=== PATIENT | male | born 1970 | race Caucasian/White ===

== ENCOUNTER 2016-09-09 10:53 | Inpatient (IN) | payer OTHER ==
[2016-09-09] MEDS ORDERED: CLINDAMYCIN 600MG PREMIX IVPB 50 ML IVPB ONE ×2 (14:05→14:56)
[2016-09-09] MEDS ORDERED: morphine CARPU-JECT 4 MG/1 ML DISP.SYRIN IVPUSH ONE (14:05)
--- NOTE | 2016-09-09 14:12 | PDOC ---
History of Present Illness - General Chief Complaint: Pain, Acute Stated Complaint: RT KNEE PAIN Time Seen by Provider: 09/09/16 12:11 History Source: Patient - History of Present Illness Occurred: reports: other Lower Extremity Pain Location: right: knee Method of Injury: Yes: fell Past History - Past Medical History Allergies/Adverse Reactions: Allergies Allergy/AdvReac Type Severity Reaction Status Date / Time No Known Allergies Allergy Verified 09/09/16 10:59 Home Medications: Ambulatory Orders NK [No Known Home Medication] 09/09/16 Other medical history: OBESITY - Immunization History Immunization Up to Date: Yes - Psycho/Social/Smoking Cessation Hx Anxiety: No Suicidal Ideation: No Smoking History: Never smoked Have you smoked in the past 12 months: No Hx Alcohol Use: No Drug/Substance Use Hx: No Substance Use Type: None Review of Systems - Review of Systems Constitutional: No: Chills, Fever, Malaise Musculoskeletal: Yes: Joint Pain, Joint Swelling Integumentary: Yes: Erythema *Physical Exam - Vital Signs Last Vital Signs Temp Pulse Resp BP Pulse Ox 99.0 F 97 H 20 151/97 95 09/09/16 10:57 09/09/16 10:57 09/09/16 10:57 09/09/16 10:57 09/09/16 10:57 - Physical Exam General Appearance: Yes: Appropriately Dressed, Mild Distress HEENT: positive: Normal Voice Neck: positive: Supple Respiratory/Chest: negative: Respiratory Distress Extremity: positive: Other (significant erythema to anterior R knee extending into gaines, w/ sig ttp, FROMI ) ED Treatment Course - LABORATORY CBC & Chemistry Diagram: 09/09/16 15:20 09/09/16 15:20 - RADIOLOGY Radiology Studies Ordered: Category Date Time Status CHEST X-RAY PORTABLE* [RAD] Stat Radiology 09/09/16 14:04 Ordered KNEE 2 POS-RIGHT [RAD] Stat Radiology 09/09/16 14:05 Ordered Medical Decision Making - Medical Decision Making 09/09/16 14:08 46 yo M, morbidly obesed, p/w R knee pain and swelling after fall. Pt reports falling out of bed twice ~10 days ago and since then has noticed progressive pain/swelling and erythema to anterior aspect of R knee and states he has not been able to bear weight in 2 days. Denies h/o similar episodes and no f/c. See exam R knee cellulitis Pt has extensive cellulitis of R knee, no e/o deeper infxn, i.e septic joint at this time -pain control -IV abx -XR -labs -admit 09/09/16 16:13 09/09/16 16:19XR and labs unremarkable. case d/w Dr Reyna and pt admitted *DC/Admit/Observation/Transfer Diagnosis at time of Disposition: Cellulitis of knee, right - Discharge Dispostion Condition at time of disposition: Fair Admit: Yes - Referrals Referrals: STAFF,NOT ON [Primary Care Provider] -
[2016-09-09] MEDS ORDERED: morphine CARPU-JECT 4 MG/1 ML DISP.SYRIN ONE (14:56)
[2016-09-09 15:39] LABS: BASOPHIL 1.5 % (0-2.0); EOSINOPHIL 1.1 % (0-4.5); MCH 28.5 pg (25.7-33.7); MCHC 32.7 g/dl (32.0-35.9); MEAN CELL VOLUME 87.1 fl (80-96); MEAN PLT VOLUME 9.4 fl (7.5-11.1); NEUTROPHILS 75.8 % (42.8-82.8); PLATELET COUNT 357 K/MM3 (134-434); RDW 13.7 % (11.9-15.9); WHITE BLOOD COUNT 11.9 K/mm3 (4.0-10.0)
[2016-09-09 15:54] LABS: ALBUMIN 3.2 g/dl (3.4-5.0); ANION GAP 9 (8-16); BILIRUBIN,TOTAL 0.7 mg/dL (0.2-1.0); CALCIUM 9.1 mg/dL (8.5-10.1); CO2 27 mmol/L (21-32); CREATININE 0.8 mg/dL (0.7-1.3); GLUCOSE,RANDOM 220 mg/dL (74-106); SGPT/ALT 34 U/L (12-78); TOT PROT 8.2 g/dl (6.4-8.2)
[2016-09-09 15:56] LABS: ALK PHOS 85 U/L (45-117); SGOT/AST 37 U/L (15-37)
[2016-09-09 19:07] VITALS: BMI 74.4
--- NOTE | 2016-09-09 20:33 | HP ---
Admitting History and Physical - Primary Care Physician PCP: Candace Reyna - Admission History of Present Illness: 46 yo M, morbidly obesed, p/w R knee pain and swelling after fall. Pt reports falling out of bed twice ~10 days ago and since then has noticed progressive pain/swelling and erythema to anterior aspect of R knee and states he has not been able to bear weight in 2 days. - Smoking History Smoking history: Never smoked Have you smoked in the past 12 months: No - Alcohol/Substance Use Hx Alcohol Use: No Home Medications - Allergies Allergies/Adverse Reactions: Allergies Allergy/AdvReac Type Severity Reaction Status Date / Time No Known Allergies Allergy Verified 09/09/16 10:59 - Home Medications Home Medications: Ambulatory Orders NK [No Known Home Medication] 09/09/16 Review of Systems - Review of Systems Musculoskeletal: reports: Other (knee pain) Physical Examination Vital Signs: Vital Signs Temperature 99.0 F 09/09/16 10:57 Pulse Rate 98 H 09/09/16 19:02 Respiratory Rate 18 09/09/16 19:02 Blood Pressure 151/97 09/09/16 10:57 O2 Sat by Pulse Oximetry (%) 97 09/09/16 19:02 Constitutional: Yes: No Distress HENT: Yes: Atraumatic Neck: Yes: Supple Cardiovascular: Yes: Regular Rate and Rhythm Respiratory: Yes: CTA Bilaterally Gastrointestinal: Yes: Normal Bowel Sounds Extremities: Yes: Other (r knee swollen, red and inflammed) Neurological: Yes: Alert, Oriented Problem List - Problems (1) Cellulitis of knee, right Code(s): L03.115 - CELLULITIS OF RIGHT LOWER LIMB (2) Morbid obesity Code(s): E66.01 - MORBID (SEVERE) OBESITY DUE TO EXCESS CALORIES Assessment/Plan Laboratory Tests 09/09/16 09/09/16 15:20 15:20 WBC 11.9 H RBC 4.89 Hgb 13.9 Hct 42.6 MCV 87.1 MCHC 32.7 RDW 13.7 Plt Count 357 MPV 9.4 Neutrophils % 75.8 Lymphocytes % 16.1 Monocytes % 5.5 Eosinophils % 1.1 Basophils % 1.5 Sodium 136 Potassium 5.3 H Chloride 100 Carbon Dioxide 27 Anion Gap 9 BUN 11 Creatinine 0.8 Creat Clearance w eGFR > 60 Random Glucose 220 H Calcium 9.1 Total Bilirubin 0.7 AST 37 ALT 34 Alkaline Phosphatase 85 Total Protein 8.2 Albumin 3.2 L Active Medications Generic Name Dose Route Start Last Admin Trade Name Freq PRN Reason Stop Dose Admin Influenza Virus Vaccine 45 mcg 09/09/16 19:07 Fluvirin IM 09/09/16 19:08 .ONCE ONE Pneumococcal 13-Valent Conj Vacc 0.5 ml 09/09/16 19:07 Prevnar 13 Syringe - IM 09/09/16 19:08 .ONCE ONE 1.R KNEE CELLULITIS/BURSITIS IV ABX ID AND ORTHO CONSULT PRN PAIN MEDS
[2016-09-09] MEDS ORDERED: morphine CARPU-JECT 2 MG/1 ML DISP.SYRIN ONE (21:00)
[2016-09-09] MEDS ORDERED: morphine CARPU-JECT 2 MG/1 ML DISP.SYRIN IVPUSH ONE (21:38)
[2016-09-09] MEDS ORDERED: PNEUMOC 13-VAL CONJ-DIP CRM/PF 0.5 ML DISP.SYRIN IM ONE (21:45)
[2016-09-09] MEDS ORDERED: INFLUENZA VACCINE 45 MCG/0.5 ML (MDV 16-17) IM ONE (21:45)
[2016-09-09] MEDS ORDERED: PT OWN MED DRAWER 7, Y5N ONE (23:08)
[2016-09-09] MEDS: HEPARIN NA (PORCINE) 5,000 UNITS/ML 1ML VIAL SQ SCH (23:31)
[2016-09-09] MEDS: CLINDAMYCIN 300 MG PREMIX IVPB 50 ML IVPB SCH (23:53)
[2016-09-10] MEDS: morphine CARPU-JECT 2 MG/1 ML DISP.SYRIN IVPUSH PRN ×4 (01:32→20:13)
[2016-09-10 02:20] LABS: URINE APPEARANCE CLEAR; URINE BILIRUBIN NEGATIVE (NEGATIVE); URINE BLOOD NEGATIVE (NEGATIVE); URINE COLOR YELLOW; URINE GLUCOSE (UA) 3+ (NEGATIVE); URINE KETONE NEGATIVE (NEGATIVE); URINE LEUK ESTERASE NEGATIVE (NEGATIVE); URINE NITRITE NEGATIVE (NEGATIVE); URINE PROTEIN NEGATIVE (NEGATIVE); URINE UROBILINOGEN NEGATIVE E.U./dl (0.2-1.0)
[2016-09-10] MEDS: ACETAMINOPHEN 325 MG TABLET (FP) PO PRN ×3 (02:49→22:54)
[2016-09-10] MEDS: CLINDAMYCIN 300 MG PREMIX IVPB 50 ML IVPB SCH ×4 (03:54→20:13)
[2016-09-10 07:57] LABS: BASOPHIL 0.5 % (0-2.0); EOSINOPHIL 0.8 % (0-4.5); MCH 28.9 pg (25.7-33.7); MCHC 32.5 g/dl (32.0-35.9); MEAN CELL VOLUME 88.9 fl (80-96); MEAN PLT VOLUME 8.8 fl (7.5-11.1); NEUTROPHILS 72.6 % (42.8-82.8); PLATELET COUNT 314 K/MM3 (134-434); RDW 13.5 % (11.9-15.9); WHITE BLOOD COUNT 11.4 K/mm3 (4.0-10.0)
[2016-09-10 08:45] LABS: ALBUMIN 3.1 g/dl (3.4-5.0); ALK PHOS 77 U/L (45-117); ANION GAP 10 (8-16); BILIRUBIN,TOTAL 0.6 mg/dL (0.2-1.0); CALCIUM 9.1 mg/dL (8.5-10.1); CO2 27 mmol/L (21-32); CREATININE 0.8 mg/dL (0.7-1.3); GLUCOSE,RANDOM 233 mg/dL (74-106); SGOT/AST 13 U/L (15-37); SGPT/ALT 31 U/L (12-78); TOT PROT 7.5 g/dl (6.4-8.2)
[2016-09-10] MEDS ORDERED: PT OWN MED DRAWER 7, Y5N ONE ×2 (09:07→14:10)
[2016-09-10] MEDS: HEPARIN NA (PORCINE) 5,000 UNITS/ML 1ML VIAL SQ SCH ×2 (09:11→22:54)
[2016-09-10] MEDS ORDERED: PNEUMOC 13-VAL CONJ-DIP CRM/PF 0.5 ML DISP.SYRIN IM ONE (11:00)
--- NOTE | 2016-09-10 13:51 | CONSULT ---
Consult Consult Specialty:: infectious diseases Referred by:: Reason for Consultation:: cellulitis of the knee joint rt - History of Present Illness Chief Complaint: pain swelling and unable to bear weight on the knee right History of Present Illness: 46 yo M, morbidly obesed, p/w R knee pain and swelling after fall. Pt reports falling out of bed twice ~10 days ago and since then has noticed progressive pain/swelling and erythema to anterior aspect of R knee and states he has not been able to bear weight in 2 days. according to the patient post fall he was fine for few days and since friday the pain and swelling started increasing and the patient could not walk at all nor put pressure on the joint denies any other issues Recently diagnosed with dm - History Source History Provided By: Patient Limitations to Obtaining History: No Limitations - Alcohol/Substance Use Hx Alcohol Use: No - Smoking History Smoking history: Never smoked Have you smoked in the past 12 months: No Home Medications - Allergies Allergies/Adverse Reactions: Allergies Allergy/AdvReac Type Severity Reaction Status Date / Time No Known Allergies Allergy Verified 09/09/16 10:59 - Home Medications Home Medications: Ambulatory Orders NK [No Known Home Medication] 09/09/16 Review of Systems - Review of Systems Constitutional: reports: No Symptoms Eyes: reports: No Symptoms HENT: reports: No Symptoms Neck: reports: No Symptoms Cardiovascular: reports: No Symptoms Respiratory: reports: No Symptoms Gastrointestinal: reports: No Symptoms Genitourinary: reports: No Symptoms Musculoskeletal: reports: Joint Pain, Joint Swelling Integumentary: reports: Erythema, Other Neurological: reports: No Symptoms Endocrine: reports: No Symptoms Hematology/Lymphatic: reports: No Symptoms Psychiatric: reports: No Symptoms Physical Exam Vital Signs: Vital Signs Temperature 98.3 F 09/10/16 09:18 Pulse Rate 96 H 09/10/16 09:18 Respiratory Rate 20 09/10/16 09:18 Blood Pressure 141/74 09/10/16 09:18 O2 Sat by Pulse Oximetry (%) 100 09/10/16 04:57 Constitutional: Yes: Obese (morbidly) Eyes: Yes: Conjunctiva Clear HENT: Yes: Atraumatic, Normocephalic Neck: Yes: Supple, Trachea Midline Cardiovascular: Yes: Regular Rate and Rhythm Respiratory: Yes: Regular, Poor Air Entry (bases) Gastrointestinal: Yes: Normal Bowel Sounds, Soft Musculoskeletal: Yes: Joint Swelling, Other (joint pain,erythema,fluctuation present,inability to move the joint) Extremities: Yes: Erythema, Other Neurological: Yes: Alert, Oriented Psychiatric: Yes: Alert, Oriented Labs: CBC, BMP 09/10/16 06:00 09/10/16 06:00 Imaging - Results Chest X-ray: Report Reviewed, Image Reviewed X-ray: Report Reviewed, Image Reviewed Assessment/Plan patient evaluated after looking at the history patient is now not able to bear any weight on the joint and patient is morbidly obese on palpation the knee is fluctuant sever pain on palpation of the joint inability to move the joint - Problems (1) Cellulitis of knee, right Code(s): L03.115 - CELLULITIS OF RIGHT LOWER LIMB DM r/o septic joint r/o heamarthrosis e/o collection in the joint plan will order a stat ct scan as patient is too big for mri also will need ortho to look at the joint abx combination once we know what ct scan shows can plan further
[2016-09-10] MEDS: PIPERACILLIN/TAZOB 3.375 GM 50 ML IVPB SCH ×2 (14:58→18:09)
--- NOTE | 2016-09-10 16:38 | PN ---
Progress Note (short form) - Note Progress Note: Pt seen and examined. Full consult to follow. Dx=Right knee infected prepatellar bursa. No surgery needed. Con't antibiotics Warm soaks
--- NOTE | 2016-09-10 17:48 | EKG ---
Test Reason : Blood Pressure : / mmHG Vent. Rate : 091 BPM Atrial Rate : 091 BPM P-R Int : 168 ms QRS Dur : 096 ms QT Int : 374 ms P-R-T Axes : 038 017 035 degrees QTc Int : 460 ms NORMAL SINUS RHYTHM NORMAL ECG NO PREVIOUS ECGS AVAILABLE Confirmed by YULISSA TURCIOS MD ([id number]) on 09/10/2016 5:48:20 PM Referred By: Confirmed By:YULISSA TURCIOS MD
--- NOTE | 2016-09-10 20:41 | PN ---
Progress Note, Physician - Current Medication List Current Medications: Active Medications Acetaminophen (Tylenol -) 650 mg PO Q6H PRN PRN Reason: FEVER OR PAIN Last Admin: 09/10/16 12:31 Dose: 650 mg Heparin Sodium (Porcine) (Heparin -) 5,000 unit SQ BID NANCY Last Admin: 09/10/16 09:11 Dose: 5,000 unit Clindamycin Phosphate (Cleocin 300 Mg Premix Ivpb) 50 mls @ 100 mls/hr IVPB Q6H -IV NANCY Last Admin: 09/10/16 20:13 Dose: 100 mls/hr Piperacillin Sod/Tazobactam Sod (Zosyn 3.375gm Ivpb (Pre-Docked)) 50 mls @ 100 mls/hr IVPB Q8H-IV NANCY Last Admin: 09/10/16 18:09 Dose: Not Given Morphine Sulfate (Morphine Injection -) 2 mg IVPUSH Q4H PRN PRN Reason: PAIN Last Admin: 09/10/16 20:13 Dose: 2 mg - Objective Vital Signs: Vital Signs Temperature 98.4 F 09/10/16 18:15 Pulse Rate 88 09/10/16 18:15 Respiratory Rate 20 09/10/16 18:15 Blood Pressure 135/89 09/10/16 18:15 O2 Sat by Pulse Oximetry (%) 100 09/10/16 10:00 Constitutional: Yes: No Distress HENT: Yes: Atraumatic Neck: Yes: Supple Cardiovascular: Yes: Regular Rate and Rhythm Respiratory: Yes: CTA Bilaterally Gastrointestinal: Yes: Normal Bowel Sounds Extremities: Yes: Other (R KNEE RED AND WARM) Neurological: Yes: Alert, Oriented Labs: CBC, BMP 09/10/16 06:00 09/10/16 06:00 Problem List - Problems (1) Cellulitis of knee, right Code(s): L03.115 - CELLULITIS OF RIGHT LOWER LIMB Assessment/Plan 1.R KNEE CELLULITIS/BURSITIS IV ABX ID AND ORTHO CONSULT...NOTED PRN PAIN MEDS
[2016-09-11] MEDS: morphine CARPU-JECT 2 MG/1 ML DISP.SYRIN IVPUSH PRN ×2 (00:05→06:05)
[2016-09-11] MEDS: CLINDAMYCIN 300 MG PREMIX IVPB 50 ML IVPB SCH ×4 (02:30→20:42)
[2016-09-11] MEDS: PIPERACILLIN/TAZOB 3.375 GM 50 ML IVPB SCH ×3 (02:30→17:13)
--- NOTE | 2016-09-11 09:31 | PN ---
Progress Note (short form) - Note Progress Note: Pt seen, s/p fall directly onto right knee. Right knee infected prepatellar bursa unchanged, on IV antibiotics, we should see a more dramatic improvement tonight or tomorrow morning. PE Right knee no change: red, warm, very tender, swollen over the prepatellar bursa. No pain at all with full right knee ROM. (and therefore unlikely to be intra articular) Overall unchanged from last night. Imp No change Rec Con't IV antibiotics Warm soaks to right knee. Ambulation and WBAT Will follow
[2016-09-11] MEDS ORDERED: PT OWN MED DRAWER 7, Y5N ONE ×5 (09:43→20:35)
[2016-09-11] MEDS: HEPARIN NA (PORCINE) 5,000 UNITS/ML 1ML VIAL SQ SCH ×2 (09:45→23:39)
--- NOTE | 2016-09-11 15:54 | CONSULT ---
Consult Consult Specialty:: Endocrinology Referred by:: Dr Reyna Reason for Consultation:: New Onset DM - History of Present Illness Chief Complaint: Rt Knee pain History of Present Illness: this is a 46 y/o M, morbidly obese who presented to ED with C/O R knee pain and swelling after fall about 12 days ago which worsened for the last 4 days. Pt reports falling out of bed ~12 days ago and since then has noticed progressive pain/swelling and erythema to anterior aspect of R knee and states he has not been able to bear weight in 2 days. Pt denies any personal or family h/o DM. Denies any polyuria, polydipsia. Nocturia twice daily. No visual symptoms. No paresthesia. - History Source History Provided By: Patient, Medical Record - Past Medical History Endocrine: Yes: Other (Morbid Obesity) - Alcohol/Substance Use Hx Alcohol Use: No - Smoking History Smoking history: Never smoked Have you smoked in the past 12 months: No Home Medications - Allergies Allergies/Adverse Reactions: Allergies Allergy/AdvReac Type Severity Reaction Status Date / Time No Known Allergies Allergy Verified 09/09/16 10:59 - Home Medications Home Medications: Ambulatory Orders NK [No Known Home Medication] 09/09/16 Family Disease History - Family Disease History Other Family History: No family h/o DM Review of Systems - Review of Systems Constitutional: reports: No Symptoms Eyes: reports: No Symptoms HENT: reports: No Symptoms Neck: reports: No Symptoms Cardiovascular: reports: No Symptoms Respiratory: reports: No Symptoms Gastrointestinal: reports: No Symptoms Genitourinary: reports: Testicular Pain, Other (Nocturia twice daily) Musculoskeletal: reports: Joint Pain (Rt Knee) Endocrine: reports: No Symptoms Psychiatric: reports: No Symptoms Physical Exam Vital Signs: Vital Signs Temperature 98.9 F 09/11/16 14:43 Pulse Rate 100 H 09/11/16 14:43 Respiratory Rate 20 09/11/16 14:43 Blood Pressure 133/75 09/11/16 14:43 O2 Sat by Pulse Oximetry (%) 98 09/10/16 23:00 Constitutional: Yes: No Distress, Calm Eyes: Yes: Conjunctiva Clear, EOM Intact HENT: Yes: Atraumatic, Normocephalic Neck: Yes: Supple, Trachea Midline Cardiovascular: Yes: Regular Rate and Rhythm Respiratory: Yes: Regular, CTA Bilaterally Gastrointestinal: Yes: Normal Bowel Sounds Extremities: Yes: Erythema (Rt Knee) Edema: No Neurological: Yes: Alert, Oriented Labs: CBC, BMP 09/10/16 06:00 09/10/16 06:00 Problem List - Problems (1) Cellulitis of knee, right Code(s): L03.115 - CELLULITIS OF RIGHT LOWER LIMB Assessment/Plan AP: Cellulitis Rt Knee New Onset DM: Diet exercise discussed. Diabetes education done Start Metformin 500mg BID Nutrition consult Morbid Obesity: Discussed option of Wt loss surgery. Pt wants to think about it.
--- NOTE | 2016-09-11 16:02 | PN ---
Progress Note, Physician History of Present Illness: patient says feels little better pain in the knee joint less erythema less - Current Medication List Current Medications: Active Medications Acetaminophen (Tylenol -) 650 mg PO Q6H PRN PRN Reason: FEVER OR PAIN Last Admin: 09/10/16 22:54 Dose: 650 mg Heparin Sodium (Porcine) (Heparin -) 5,000 unit SQ BID NANCY Last Admin: 09/11/16 09:45 Dose: 5,000 unit Clindamycin Phosphate (Cleocin 300 Mg Premix Ivpb) 50 mls @ 100 mls/hr IVPB Q6H -IV NANCY Last Admin: 09/11/16 15:13 Dose: 100 mls/hr Piperacillin Sod/Tazobactam Sod (Zosyn 3.375gm Ivpb (Pre-Docked)) 50 mls @ 100 mls/hr IVPB Q8H-IV NANCY Last Admin: 09/11/16 09:45 Dose: 100 mls/hr Insulin Aspart (Novolog) 0 units SQ TIDAC NANCY PRN Reason: Protocol Metformin HCl (Glucophage Xr -) 500 mg PO BID [facility] Morphine Sulfate (Morphine Injection -) 2 mg IVPUSH Q4H PRN PRN Reason: PAIN Last Admin: 09/11/16 06:05 Dose: 2 mg - Objective Vital Signs: Vital Signs Temperature 98.9 F 09/11/16 14:43 Pulse Rate 100 H 09/11/16 14:43 Respiratory Rate 20 09/11/16 14:43 Blood Pressure 133/75 09/11/16 14:43 O2 Sat by Pulse Oximetry (%) 98 09/10/16 23:00 Constitutional: Yes: No Distress, Calm, Obese (morbidly obese) Cardiovascular: Yes: Regular Rate and Rhythm Respiratory: Yes: Regular, CTA Bilaterally Gastrointestinal: Yes: Normal Bowel Sounds, Soft Musculoskeletal: Yes: Other Extremities: Yes: Erythema, Other (pain) Neurological: Yes: Alert, Oriented Psychiatric: Yes: Alert, Oriented Labs: CBC, BMP 09/10/16 06:00 09/10/16 06:00 Assessment/Plan - Problems (1) Cellulitis of knee, right Code(s): L03.115 - CELLULITIS OF RIGHT LOWER LIMB DM r/o septic joint r/o heamarthrosis e/o collection in the joint plan ct scan cannot be done ortho note noted continue abx
[2016-09-11] MEDS ORDERED: INSULIN (NOVOLOG) ASPART 100 UNITS/ML 10ML VIAL ONE ×2 (17:04→17:53)
[2016-09-11] MEDS ORDERED: INSULIN DETEMIR 100 UNITS/ML MDV SQ ONE (17:05)
[2016-09-11] MEDS: INSULIN SLIDING SCALE (NOVOLOG) 1 VIAL SQ SCH (17:14)
--- NOTE | 2016-09-11 19:37 | PN ---
Progress Note, Physician - Current Medication List Current Medications: Active Medications Acetaminophen (Tylenol -) 650 mg PO Q6H PRN PRN Reason: FEVER OR PAIN Last Admin: 09/10/16 22:54 Dose: 650 mg Heparin Sodium (Porcine) (Heparin -) 5,000 unit SQ BID NANCY Last Admin: 09/11/16 09:45 Dose: 5,000 unit Clindamycin Phosphate (Cleocin 300 Mg Premix Ivpb) 50 mls @ 100 mls/hr IVPB Q6H -IV NANCY Last Admin: 09/11/16 15:13 Dose: 100 mls/hr Piperacillin Sod/Tazobactam Sod (Zosyn 3.375gm Ivpb (Pre-Docked)) 50 mls @ 100 mls/hr IVPB Q8H-IV NANCY Last Admin: 09/11/16 17:13 Dose: 100 mls/hr Insulin Aspart (Novolog Vial Sliding Scale -) 1 vial SQ TIDAC NANCY PRN Reason: Protocol Last Admin: 09/11/16 17:14 Dose: 2 units Metformin HCl (Glucophage Xr -) 500 mg PO BIDAC NANCY Morphine Sulfate (Morphine Injection -) 2 mg IVPUSH Q4H PRN PRN Reason: PAIN Last Admin: 09/11/16 06:05 Dose: 2 mg - Objective Vital Signs: Vital Signs Temperature 98.8 F 09/11/16 18:25 Pulse Rate 85 09/11/16 18:25 Respiratory Rate 20 09/11/16 18:25 Blood Pressure 132/78 09/11/16 18:25 O2 Sat by Pulse Oximetry (%) 98 09/11/16 10:00 Constitutional: Yes: No Distress HENT: Yes: Atraumatic Neck: Yes: Supple Cardiovascular: Yes: Regular Rate and Rhythm Respiratory: Yes: CTA Bilaterally Gastrointestinal: Yes: Normal Bowel Sounds Extremities: Yes: Other (r knee cellulitis) Neurological: Yes: Alert, Oriented Labs: CBC, BMP 09/10/16 06:00 09/10/16 06:00 Problem List - Problems (1) Cellulitis of knee, right Code(s): L03.115 - CELLULITIS OF RIGHT LOWER LIMB Assessment/Plan 1.R KNEE CELLULITIS/BURSITIS IV ABX ID AND ORTHO CONSULT...NOTED PRN PAIN MEDS couldnt get ct knee done
[2016-09-11] MEDS: ACETAMINOPHEN 325 MG TABLET (FP) PO PRN (20:41)
[2016-09-12] MEDS: PIPERACILLIN/TAZOB 3.375 GM 50 ML IVPB SCH ×3 (02:54→17:43)
[2016-09-12] MEDS ORDERED: PT OWN MED DRAWER 7, Y5N ONE ×6 (03:20→21:36)
[2016-09-12] MEDS: CLINDAMYCIN 300 MG PREMIX IVPB 50 ML IVPB SCH ×4 (04:00→22:34)
[2016-09-12] MEDS: INSULIN SLIDING SCALE (NOVOLOG) 1 VIAL SQ SCH ×3 (06:56→16:44)
[2016-09-12] MEDS: HEPARIN NA (PORCINE) 5,000 UNITS/ML 1ML VIAL SQ SCH ×2 (10:00→22:34)
[2016-09-12] MEDS ORDERED: INSULIN (NOVOLOG) ASPART 100 UNITS/ML 10ML VIAL ONE (12:01)
[2016-09-12] MEDS: morphine CARPU-JECT 2 MG/1 ML DISP.SYRIN IVPUSH PRN (16:40)
[2016-09-12] MEDS ORDERED: morphine CARPU-JECT 2 MG/1 ML DISP.SYRIN IVPUSH PRN (22:00)
--- NOTE | 2016-09-12 23:13 | PN ---
Progress Note, Physician - Current Medication List Current Medications: Active Medications Acetaminophen (Tylenol -) 650 mg PO Q6H PRN PRN Reason: FEVER OR PAIN Last Admin: 09/11/16 20:41 Dose: 650 mg Heparin Sodium (Porcine) (Heparin -) 5,000 unit SQ BID NANCY Last Admin: 09/12/16 22:34 Dose: 5,000 unit Clindamycin Phosphate (Cleocin 300 Mg Premix Ivpb) 50 mls @ 100 mls/hr IVPB Q6H -IV NANCY Last Admin: 09/12/16 22:34 Dose: 100 mls/hr Piperacillin Sod/Tazobactam Sod (Zosyn 3.375gm Ivpb (Pre-Docked)) 50 mls @ 100 mls/hr IVPB Q8H-IV [facility] Last Admin: 09/12/16 17:43 Dose: 100 mls/hr Insulin Aspart (Novolog Vial Sliding Scale -) 1 vial SQ TIDAC NANCY PRN Reason: Protocol Last Admin: 09/12/16 16:44 Dose: 4 units Metformin HCl (Glucophage Xr -) 500 mg PO BIDAC NANCY Last Admin: 09/12/16 16:41 Dose: 500 mg Morphine Sulfate (Morphine Injection -) 2 mg IVPUSH Q4H PRN PRN Reason: PAIN - Objective Vital Signs: Vital Signs Temperature 98.6 F 09/12/16 18:15 Pulse Rate 82 09/12/16 18:15 Respiratory Rate 20 09/12/16 18:15 Blood Pressure 150/102 09/12/16 18:15 O2 Sat by Pulse Oximetry (%) 98 09/12/16 09:00 Labs: CBC, BMP 09/10/16 06:00 09/10/16 06:00
[2016-09-13] MEDS: PIPERACILLIN/TAZOB 3.375 GM 50 ML IVPB SCH ×3 (02:11→18:04)
[2016-09-13] MEDS: CLINDAMYCIN 300 MG PREMIX IVPB 50 ML IVPB SCH ×4 (02:11→22:47)
[2016-09-13] MEDS: INSULIN SLIDING SCALE (NOVOLOG) 1 VIAL SQ SCH ×4 (06:02→22:51)
--- NOTE | 2016-09-13 08:37 | PN ---
Progress Note (short form) - Note Progress Note: Ortho Pt seen and examined s/p right knee infected prepatellar bursa decr pain, decr erythema and swelling, incr rom nvi a/p Continue IV abx rom exercises will follow d/w Dr. Guzman
[2016-09-13] MEDS ORDERED: PT OWN MED DRAWER 7, Y5N ONE ×3 (09:07→16:34)
[2016-09-13] MEDS: HEPARIN NA (PORCINE) 5,000 UNITS/ML 1ML VIAL SQ SCH ×2 (09:13→22:48)
--- NOTE | 2016-09-13 09:29 | PN ---
Progress Note (short form) - Note Progress Note: Feels better Less Rt knee pain Blood sugar 200s Vital Signs Period Temp Pulse Resp BP Sys/[place]more Pulse Ox Last 24 Hr 98.0 F-98.6 F 82-99 16-20 114-150/60-102 98 PE: AOx3 Neck: Supple, No JVD HEENT: PERRL, EOMI Lungs: CTA CvS: S1S2 Abd: Benign Ext: Edema present Neuro: No focal deficit CMP Sodium 137 mmol/L (136-145) 09/10/16 06:00 Potassium 4.1 mmol/L (3.5-5.1) D 09/10/16 06:00 Chloride 100 mmol/L (98-107) 09/10/16 06:00 Carbon Dioxide 27 mmol/L (21-32) 09/10/16 06:00 Anion Gap 10 (8-16) 09/10/16 06:00 BUN 13 mg/dL (7-18) 09/10/16 06:00 Creatinine 0.8 mg/dL (0.7-1.3) 09/10/16 06:00 Creat Clearance w eGFR > 60 (>60) 09/10/16 06:00 POC Glucometer 278 UNITS (()) 09/13/16 05:54 Random Glucose 233 mg/dL (74-106) H 09/10/16 06:00 Hemoglobin A1c % 9.8 % (4.8-6.0) H D 09/11/16 06:50 Calcium 9.1 mg/dL (8.5-10.1) 09/10/16 06:00 Total Bilirubin 0.6 mg/dL (0.2-1.0) 09/10/16 06:00 AST 13 U/L (15-37) L D 09/10/16 06:00 ALT 31 U/L (12-78) 09/10/16 06:00 Alkaline Phosphatase 77 U/L (45-117) 09/10/16 06:00 Total Protein 7.5 g/dl (6.4-8.2) 09/10/16 06:00 Albumin 3.1 g/dl (3.4-5.0) L 09/10/16 06:00 Current Medications Generic Name Dose Route Start Last Admin Trade Name Freq PRN Reason Stop Dose Admin Acetaminophen 650 mg 09/09/16 20:36 02/08/17 20:41 Tylenol - PO 650 mg Q6H PRN Administration FEVER OR PAIN Heparin Sodium (Porcine) 5,000 unit 09/09/16 22:00 09/13/16 09:13 Heparin - SQ 5,000 unit BID NANCY Administration Clindamycin Phosphate 50 mls @ 100 mls/hr 09/09/16 21:45 09/13/16 09:13 Cleocin 300 Mg Premix Ivpb IVPB 100 mls/hr Q6H-IV NANCY Administration Piperacillin Sod/Tazobactam Sod 50 mls @ 100 mls/hr 09/10/16 14:00 09/13/16 02: 11 Zosyn 3.375gm Ivpb (Pre-Docked) IVPB 100 mls/hr Q8H-IV NANCY Administration Insulin Aspart 1 vial 09/11/16 16:30 09/13/16 06:02 Novolog Vial Sliding Scale - SQ 6 units TIDAC NANCY Administration Protocol Metformin HCl 500 mg 09/11/16 17:09 09/13/16 06:02 Glucophage Xr - PO 500 mg BIDAC NANCY Administration Morphine Sulfate 2 mg 09/12/16 22:00 Morphine Injection - IVPUSH Q4H PRN PAIN AP: Cellulitis Rt Knee: improving New Onset DM: Start Levemir 12 units daily at HS Increase Novolog SS coverage Diet exercise discussed again. Diabetes education done Metformin 500mg BID Morbid Obesity: Discussed option of Wt loss surgery. Pt wants to think about it. Problem List - Problems (1) Cellulitis of knee, right Code(s): L03.115 - CELLULITIS OF RIGHT LOWER LIMB
[2016-09-13] MEDS ORDERED: INSULIN (NOVOLOG) ASPART 100 UNITS/ML 10ML VIAL ONE ×3 (11:33→21:22)
--- NOTE | 2016-09-13 17:16 | PN ---
Progress Note, Physician - Current Medication List Current Medications: Active Medications Acetaminophen (Tylenol -) 650 mg PO Q6H PRN PRN Reason: FEVER OR PAIN Last Admin: 09/11/16 20:41 Dose: 650 mg Heparin Sodium (Porcine) (Heparin -) 5,000 unit SQ BID NANCY Last Admin: 09/13/16 09:13 Dose: 5,000 unit Clindamycin Phosphate (Cleocin 300 Mg Premix Ivpb) 50 mls @ 100 mls/hr IVPB Q6H -IV NANCY Last Admin: 09/13/16 14:59 Dose: 100 mls/hr Piperacillin Sod/Tazobactam Sod (Zosyn 3.375gm Ivpb (Pre-Docked)) 50 mls @ 100 mls/hr IVPB Q8H-IV NANCY Last Admin: 09/13/16 10:04 Dose: 100 mls/hr Insulin Aspart (Novolog Vial Sliding Scale -) 1 vial SQ TIDAC NANCY PRN Reason: Protocol Last Admin: 09/13/16 16:41 Dose: 6 units Insulin Aspart (Novolog Vial Sliding Scale -) 1 vial SQ HS NANCY PRN Reason: Protocol Insulin Detemir (Levemir Vial) 12 units SQ HS NANCY Metformin HCl (Glucophage Xr -) 500 mg PO BIDAC NANCY Last Admin: 09/13/16 16:41 Dose: 500 mg Morphine Sulfate (Morphine Injection -) 2 mg IVPUSH Q4H PRN PRN Reason: PAIN - Objective Vital Signs: Vital Signs Temperature 98.2 F 09/13/16 14:35 Pulse Rate 86 09/13/16 14:35 Respiratory Rate 21 09/13/16 14:35 Blood Pressure 148/84 09/13/16 14:35 O2 Sat by Pulse Oximetry (%) 94 L 09/13/16 09:00 Constitutional: Yes: No Distress HENT: Yes: Atraumatic Neck: Yes: Supple Cardiovascular: Yes: Regular Rate and Rhythm Respiratory: Yes: CTA Bilaterally Gastrointestinal: Yes: Normal Bowel Sounds Extremities: Yes: Other (r knee cellulitis much improved) Neurological: Yes: Alert, Oriented Labs: CBC, BMP 09/10/16 06:00 09/10/16 06:00 Problem List - Problems (1) Cellulitis of knee, right Code(s): L03.115 - CELLULITIS OF RIGHT LOWER LIMB Assessment/Plan 1.R KNEE CELLULITIS/BURSITIS IV ABX knee draining serous fluid cxs pending 2.dm on insulin metformin 3.morbid obesity diet excercise bariatric surgery??
--- NOTE | 2016-09-13 17:46 | PN ---
Progress Note, Physician History of Present Illness: patient stable no issues as expected patient had collection in the knee joint which has eroded through the skin and now the kne joint is draining patients swelling has decreased erythema has gone down - Current Medication List Current Medications: Active Medications Acetaminophen (Tylenol -) 650 mg PO Q6H PRN PRN Reason: FEVER OR PAIN Last Admin: 09/11/16 20:41 Dose: 650 mg Heparin Sodium (Porcine) (Heparin -) 5,000 unit SQ BID NANCY Last Admin: 09/13/16 09:13 Dose: 5,000 unit Clindamycin Phosphate (Cleocin 300 Mg Premix Ivpb) 50 mls @ 100 mls/hr IVPB Q6H -IV NANCY Last Admin: 09/13/16 14:59 Dose: 100 mls/hr Piperacillin Sod/Tazobactam Sod (Zosyn 3.375gm Ivpb (Pre-Docked)) 50 mls @ 100 mls/hr IVPB Q8H-IV NANCY Last Admin: 09/13/16 10:04 Dose: 100 mls/hr Insulin Aspart (Novolog Vial Sliding Scale -) 1 vial SQ TIDAC [facility]1983 PRN Reason: Protocol Last Admin: 09/13/16 16:41 Dose: 6 units Insulin Aspart (Novolog Vial Sliding Scale -) 1 vial SQ HS NANCY PRN Reason: Protocol Insulin Detemir (Levemir Vial) 12 units SQ HS NANCY Metformin HCl (Glucophage Xr -) 500 mg PO BIDAC [facility]1983 Last Admin: 09/13/16 16:41 Dose: 500 mg Morphine Sulfate (Morphine Injection -) 2 mg IVPUSH Q4H PRN PRN Reason: PAIN - Objective Vital Signs: Vital Signs Temperature 98.2 F 09/13/16 14:35 Pulse Rate 86 09/13/16 14:35 Respiratory Rate 21 09/13/16 14:35 Blood Pressure 148/84 09/13/16 14:35 O2 Sat by Pulse Oximetry (%) 94 L 09/13/16 09:00 Constitutional: Yes: No Distress, Calm HENT: Yes: Atraumatic Neck: Yes: Supple Cardiovascular: Yes: Regular Rate and Rhythm Respiratory: Yes: Regular, CTA Bilaterally Gastrointestinal: Yes: Normal Bowel Sounds, Soft Musculoskeletal: Yes: WNL Extremities: Yes: Erythema (knee joint), Other Wound/Incision: Yes: Draining (knee joint) Neurological: Yes: Alert, Oriented Psychiatric: Yes: Alert, Oriented Labs: CBC, BMP 09/10/16 06:00 09/10/16 06:00 Assessment/Plan - Problems (1) Cellulitis of knee, right Code(s): L03.115 - CELLULITIS OF RIGHT LOWER LIMB DM r/o septic joint collection in the joint plan continue abx will send the fluid for culture
[2016-09-13] MEDS: INSULIN DETEMIR 100 UNITS/ML MDV SQ SCH (22:47)
[2016-09-14] MEDS: PIPERACILLIN/TAZOB 3.375 GM 50 ML IVPB SCH ×3 (02:20→18:35)
[2016-09-14] MEDS: CLINDAMYCIN 300 MG PREMIX IVPB 50 ML IVPB SCH ×4 (02:20→22:03)
[2016-09-14] MEDS: INSULIN SLIDING SCALE (NOVOLOG) 1 VIAL SQ SCH ×4 (06:16→22:13)
[2016-09-14 08:46] LABS: BASOPHIL 0.6 % (0-2.0); EOSINOPHIL 1.5 % (0-4.5); MCH 28.9 pg (25.7-33.7); MCHC 32.9 g/dl (32.0-35.9); MEAN PLT VOLUME 8.9 fl (7.5-11.1); NEUTROPHILS 67.5 % (42.8-82.8); PLATELET COUNT 301 K/MM3 (134-434); RDW 13.7 % (11.9-15.9); WHITE BLOOD COUNT 9.6 K/mm3 (4.0-10.0)
[2016-09-14] MEDS: HEPARIN NA (PORCINE) 5,000 UNITS/ML 1ML VIAL SQ SCH ×2 (09:07→22:03)
[2016-09-14 09:12] LABS: ALBUMIN 3.1 g/dl (3.4-5.0); ANION GAP 8 (8-16); CALCIUM 9.1 mg/dL (8.5-10.1); CO2 28 mmol/L (21-32); GLUCOSE,RANDOM 186 mg/dL (74-106)
[2016-09-14 09:16] LABS: ALK PHOS 70 U/L (45-117); BILIRUBIN,TOTAL 0.4 mg/dL (0.2-1.0); CREATININE 0.7 mg/dL (0.7-1.3); SGOT/AST 16 U/L (15-37); SGPT/ALT 34 U/L (12-78); TOT PROT 7.7 g/dl (6.4-8.2)
[2016-09-14] MEDS ORDERED: PT OWN MED DRAWER 7, Y5N ONE ×2 (14:22→16:46)
--- NOTE | 2016-09-14 15:37 | PN ---
Progress Note, Physician History of Present Illness: patient stable no issues knee draining movement has improved - Current Medication List Current Medications: Active Medications Acetaminophen (Tylenol -) 650 mg PO Q6H PRN PRN Reason: FEVER OR PAIN Last Admin: 09/11/16 20:41 Dose: 650 mg Heparin Sodium (Porcine) (Heparin -) 5,000 unit SQ BID NANCY Last Admin: 09/14/16 09:07 Dose: 5,000 unit Clindamycin Phosphate (Cleocin 300 Mg Premix Ivpb) 50 mls @ 100 mls/hr IVPB Q6H -IV NANCY Last Admin: 09/14/16 14:26 Dose: 100 mls/hr Piperacillin Sod/Tazobactam Sod (Zosyn 3.375gm Ivpb (Pre-Docked)) 50 mls @ 100 mls/hr IVPB Q8H-IV NACNY Last Admin: 09/14/16 10:01 Dose: 100 mls/hr Insulin Aspart (Novolog Vial Sliding Scale -) 1 vial SQ TIDAC NANCY PRN Reason: Protocol Last Admin: 09/14/16 12:11 Dose: 6 units Insulin Aspart (Novolog Vial Sliding Scale -) 1 vial SQ HS NANCY PRN Reason: Protocol Last Admin: 09/13/16 22:51 Dose: Not Given Insulin Detemir (Levemir Vial) 12 units SQ HS NANCY Last Admin: 09/13/16 22:47 Dose: 12 units Metformin HCl (Glucophage Xr -) 500 mg PO BIDAC NANCY Last Admin: 09/14/16 06:14 Dose: 500 mg Morphine Sulfate (Morphine Injection -) 2 mg IVPUSH Q4H PRN PRN Reason: PAIN - Objective Vital Signs: Vital Signs Temperature 97.7 F 09/14/16 14:55 Pulse Rate 84 09/14/16 14:55 Respiratory Rate 20 09/14/16 14:55 Blood Pressure 126/79 09/14/16 14:55 O2 Sat by Pulse Oximetry (%) 94 L 09/14/16 09:00 Constitutional: Yes: No Distress, Calm, Obese (severe) Cardiovascular: Yes: Regular Rate and Rhythm Respiratory: Yes: Regular, CTA Bilaterally Gastrointestinal: Yes: Normal Bowel Sounds, Soft Musculoskeletal: Yes: Other Extremities: Yes: Other Neurological: Yes: Alert, Oriented Psychiatric: Yes: Alert, Oriented Labs: CBC, BMP 09/14/16 07:00 09/14/16 07:00 Assessment/Plan - Problems (1) Cellulitis of knee, right Code(s): L03.115 - CELLULITIS OF RIGHT LOWER LIMB DM r/o septic joint collection in the joint plan continue abx await for cx report
--- NOTE | 2016-09-14 18:18 | PN ---
Progress Note, Physician - Current Medication List Current Medications: Active Medications Acetaminophen (Tylenol -) 650 mg PO Q6H PRN PRN Reason: FEVER OR PAIN Last Admin: 09/11/16 20:41 Dose: 650 mg Heparin Sodium (Porcine) (Heparin -) 5,000 unit SQ BID NANCY Last Admin: 09/14/16 09:07 Dose: 5,000 unit Clindamycin Phosphate (Cleocin 300 Mg Premix Ivpb) 50 mls @ 100 mls/hr IVPB Q6H -IV NANCY Last Admin: 09/14/16 14:26 Dose: 100 mls/hr Piperacillin Sod/Tazobactam Sod (Zosyn 3.375gm Ivpb (Pre-Docked)) 50 mls @ 100 mls/hr IVPB Q8H-IV NANCY Last Admin: 09/14/16 10:01 Dose: 100 mls/hr Insulin Aspart (Novolog Vial Sliding Scale -) 1 vial SQ TIDAC NANCY PRN Reason: Protocol Last Admin: 09/14/16 16:47 Dose: 2 units Insulin Aspart (Novolog Vial Sliding Scale -) 1 vial SQ HS NANCY PRN Reason: Protocol Last Admin: 09/13/16 22:51 Dose: Not Given Insulin Detemir (Levemir Vial) 12 units SQ HS NANCY Last Admin: 09/13/16 22:47 Dose: 12 units Metformin HCl (Glucophage Xr -) 500 mg PO BIDAC NANCY Last Admin: 09/14/16 16:47 Dose: 500 mg Morphine Sulfate (Morphine Injection -) 2 mg IVPUSH Q4H PRN PRN Reason: PAIN - Objective Vital Signs: Vital Signs Temperature 97.7 F 09/14/16 14:55 Pulse Rate 84 09/14/16 14:55 Respiratory Rate 20 09/14/16 14:55 Blood Pressure 126/79 09/14/16 14:55 O2 Sat by Pulse Oximetry (%) 94 L 09/14/16 09:00 Constitutional: Yes: No Distress HENT: Yes: Atraumatic Neck: Yes: Supple Cardiovascular: Yes: Regular Rate and Rhythm Respiratory: Yes: CTA Bilaterally Gastrointestinal: Yes: Normal Bowel Sounds Extremities: Yes: Other (r knee cellulitis improving/draining) Edema: Yes Neurological: Yes: Alert, Oriented Labs: CBC, BMP 09/14/16 07:00 02/11/17 07:00 Problem List - Problems (1) Cellulitis of knee, right Code(s): L03.115 - CELLULITIS OF RIGHT LOWER LIMB Assessment/Plan 1.R KNEE CELLULITIS/BURSITIS IV ABX knee draining serous fluid cxs pending 2.dm on insulin metformin 3.morbid obesity diet excercise bariatric surgery??
[2016-09-14] MEDS: INSULIN DETEMIR 100 UNITS/ML MDV SQ SCH (22:12)
[2016-09-15] MEDS: PIPERACILLIN/TAZOB 3.375 GM 50 ML IVPB SCH ×2 (02:21→11:13)
[2016-09-15] MEDS: CLINDAMYCIN 300 MG PREMIX IVPB 50 ML IVPB SCH ×3 (03:46→15:50)
[2016-09-15] MEDS ORDERED: PT OWN MED DRAWER 7, Y5N ONE ×4 (06:29→15:31)
[2016-09-15] MEDS: INSULIN SLIDING SCALE (NOVOLOG) 1 VIAL SQ SCH ×5 (06:48→22:59)
[2016-09-15] MEDS: HEPARIN NA (PORCINE) 5,000 UNITS/ML 1ML VIAL SQ SCH ×2 (09:40→22:55)
--- NOTE | 2016-09-15 15:08 | PN ---
Progress Note, Physician History of Present Illness: patient stable no issues knee has stopped draining - Current Medication List Current Medications: Active Medications Acetaminophen (Tylenol -) 650 mg PO Q6H PRN PRN Reason: FEVER OR PAIN Last Admin: 09/11/16 20:41 Dose: 650 mg Heparin Sodium (Porcine) (Heparin -) 5,000 unit SQ BID NANCY Last Admin: 09/15/16 09:40 Dose: 5,000 unit Clindamycin Phosphate (Cleocin 300 Mg Premix Ivpb) 50 mls @ 100 mls/hr IVPB Q6H -IV NANCY Last Admin: 09/15/16 09:40 Dose: 100 mls/hr Piperacillin Sod/Tazobactam Sod (Zosyn 3.375gm Ivpb (Pre-Docked)) 50 mls @ 100 mls/hr IVPB Q8H-IV NANCY Last Admin: 09/15/16 11:13 Dose: 100 mls/hr Insulin Aspart (Novolog Vial Sliding Scale -) 1 vial SQ TIDAC NANCY PRN Reason: Protocol Last Admin: 09/15/16 12:12 Dose: 6 units Insulin Aspart (Novolog Vial Sliding Scale -) 1 vial SQ HS NANCY PRN Reason: Protocol Last Admin: 09/14/16 22:13 Dose: Not Given Insulin Detemir (Levemir Vial) 12 units SQ HS [facility] Last Admin: 09/14/16 22:12 Dose: 12 units Metformin HCl (Glucophage Xr -) 500 mg PO BIDAC NANCY Last Admin: 09/15/16 06:51 Dose: 500 mg Morphine Sulfate (Morphine Injection -) 2 mg IVPUSH Q4H PRN PRN Reason: PAIN Last Admin: 09/15/16 04:05 Dose: 2 mg - Objective Vital Signs: Vital Signs Temperature 98.4 F 09/15/16 09:37 Pulse Rate 84 09/15/16 09:37 Respiratory Rate 20 09/15/16 09:37 Blood Pressure 136/70 09/15/16 09:37 O2 Sat by Pulse Oximetry (%) 98 09/14/16 21:00 Constitutional: Yes: No Distress, Calm, Obese Cardiovascular: Yes: Regular Rate and Rhythm Respiratory: Yes: Regular, CTA Bilaterally Gastrointestinal: Yes: Normal Bowel Sounds, Soft Musculoskeletal: Yes: Other Extremities: Yes: Other (knee joints draiange) Integumentary: Yes: Erythema Neurological: Yes: Alert, Oriented Psychiatric: Yes: Alert Labs: CBC, BMP 09/14/16 07:00 09/14/16 07:00 Assessment/Plan - Problems (1) Cellulitis of knee, right Code(s): L03.115 - CELLULITIS OF RIGHT LOWER LIMB DM r/o septic joint collection in the joint plan stopped abx iv switched to oral continue current mgmt i think ortho should evaluate the patient again as the patient i think still has collection in the knee joint
--- NOTE | 2016-09-15 16:49 | PN ---
Progress Note (short form) - Note Progress Note: Feels better Less Rt knee pain Blood sugar improving Vital Signs Period Temp Pulse Resp BP Sys/Gilmore Pulse Ox Last 24 Hr 98 F-98.8 F 83-91 18-20 121-137/70-93 98 PE: AOx3 Neck: Supple, No JVD HEENT: PERRL, EOMI Lungs: CTA CvS: S1S2 Abd: Benign Ext: Edema present, Decreased erythema over right knee Neuro: No focal deficit CMP Sodium 137 mmol/L (136-145) 09/14/16 07:00 Potassium 4.4 mmol/L (3.5-5.1) 09/14/16 07:00 Chloride 101 mmol/L (98-107) 09/14/16 07:00 Carbon Dioxide 28 mmol/L (21-32) 09/14/16 07:00 Anion Gap 8 (8-16) 09/14/16 07:00 BUN 10 mg/dL (7-18) D 09/14/16 07:00 Creatinine 0.7 mg/dL (0.7-1.3) 09/14/16 07:00 Creat Clearance w eGFR > 60 (>60) 09/14/16 07:00 POC Glucometer 247 UNITS (()) 09/15/16 11:55 Random Glucose 186 mg/dL (74-106) H D 09/14/16 07:00 Hemoglobin A1c % 9.8 % (4.8-6.0) H D 09/11/16 06:50 Calcium 9.1 mg/dL (8.5-10.1) 09/14/16 07:00 Total Bilirubin 0.4 mg/dL (0.2-1.0) D 09/14/16 07:00 AST 16 U/L (15-37) D 09/14/16 07:00 ALT 34 U/L (12-78) 09/14/16 07:00 Alkaline Phosphatase 70 U/L (45-117) 09/14/16 07:00 Total Protein 7.7 g/dl (6.4-8.2) 09/14/16 07:00 Albumin 3.1 g/dl (3.4-5.0) L 09/14/16 07:00 Current Medications Generic Name Dose Route Start Last Admin Trade Name Freq PRN Reason Stop Dose Admin Acetaminophen 650 mg 09/09/16 20:36 09/11/16 20:41 Tylenol - PO 650 mg Q6H PRN Administration FEVER OR PAIN Clindamycin HCl 300 mg 09/15/16 18:00 Cleocin - PO Q6HPO NANCY Heparin Sodium (Porcine) 5,000 unit 09/09/16 22:00 09/15/16 09:40 Heparin - SQ 5,000 unit BID NANCY Administration Insulin Aspart 1 vial 09/13/16 14:08 09/15/16 12:12 Novolog Vial Sliding Scale - SQ 6 units TIDAC NANCY Administration Protocol Insulin Aspart 1 vial 09/13/16 22:00 09/14/16 22:13 Novolog Vial Sliding Scale - SQ Not Given HS [facility] Protocol Insulin Detemir 12 units 09/13/16 22:00 09/14/16 22:12 Levemir Vial SQ 12 units HS NANCY Administration Metformin HCl 500 mg 09/11/16 17:09 09/15/16 06:51 Glucophage Xr - PO 500 mg BIDAC NANCY Administration Morphine Sulfate 2 mg 09/12/16 22:00 09/15/16 04:05 Morphine Injection - IVPUSH 2 mg Q4H PRN Administration PAIN AP: Cellulitis Rt Knee: improving, ?Rt knee fluid as per ID New Onset DM: INcrease Levemir 15 units daily at HS Increase Novolog SS coverage Diet exercise discussed again. Diabetes education done Metformin 500mg BID Teach pt to self inject insulin Morbid Obesity: Discussed option of Wt loss surgery. Pt wants to think about it. Problem List - Problems (1) Cellulitis of knee, right Code(s): L03.115 - CELLULITIS OF RIGHT LOWER LIMB
[2016-09-15] MEDS ORDERED: INSULIN SLIDING SCALE (NOVOLOG) 1 VIAL SQ SCH (16:51)
[2016-09-15] MEDS: CLINDAMYCIN HCL 150 MG CAPSULE (FP) PO SCH (17:34)
[2016-09-15] MEDS: ACETAMINOPHEN 325 MG TABLET (FP) PO PRN (19:28)
[2016-09-15] MEDS ORDERED: morphine CARPU-JECT 2 MG/1 ML DISP.SYRIN IVPUSH PRN (19:45)
--- NOTE | 2016-09-15 20:08 | PN ---
Progress Note, Physician - Current Medication List Current Medications: Active Medications Acetaminophen (Tylenol -) 650 mg PO Q6H PRN PRN Reason: FEVER OR PAIN Last Admin: 09/15/16 19:28 Dose: 650 mg Clindamycin HCl (Cleocin -) 300 mg PO Q6HPO [facility] Last Admin: 09/15/16 17:34 Dose: 300 mg Heparin Sodium (Porcine) (Heparin -) 5,000 unit SQ BID NANCY Last Admin: 09/15/16 09:40 Dose: 5,000 unit Insulin Aspart (Novolog Vial Sliding Scale -) 1 vial SQ HS NANCY PRN Reason: Protocol Last Admin: 09/14/16 22:13 Dose: Not Given Insulin Aspart (Novolog Vial Sliding Scale -) 1 vial SQ TIDAC NANCY PRN Reason: Protocol Last Admin: 09/15/16 17:27 Dose: 4 units Insulin Detemir (Levemir Vial) 15 units SQ HS NANCY Metformin HCl (Glucophage Xr -) 500 mg PO BIDAC [facility] Last Admin: 09/15/16 17:28 Dose: 500 mg Morphine Sulfate (Morphine Injection -) 2 mg IVPUSH Q4H PRN PRN Reason: PAIN - Objective Vital Signs: Vital Signs Temperature 98.3 F 09/15/16 18:00 Pulse Rate 83 09/15/16 18:00 Respiratory Rate 20 09/15/16 18:00 Blood Pressure 134/91 09/15/16 18:00 O2 Sat by Pulse Oximetry (%) 98 09/14/16 21:00 Constitutional: Yes: No Distress HENT: Yes: Atraumatic Neck: Yes: Supple Cardiovascular: Yes: Regular Rate and Rhythm Respiratory: Yes: CTA Bilaterally Gastrointestinal: Yes: Normal Bowel Sounds Extremities: Yes: Other (r knee cellulitis much improved) Neurological: Yes: Alert, Oriented Labs: CBC, BMP 09/14/16 07:00 09/14/16 07:00 Problem List - Problems (1) Cellulitis of knee, right Code(s): L03.115 - CELLULITIS OF RIGHT LOWER LIMB Assessment/Plan 1.R KNEE CELLULITIS/BURSITIS now on po abx knee draining serous fluid cxs pending 2.dm on insulin metformin 3.morbid obesity diet excercise fu ortho
[2016-09-15] MEDS ORDERED: INSULIN DETEMIR 100 UNITS/ML MDV SQ SCH (22:00)
[2016-09-16] MEDS: CLINDAMYCIN HCL 150 MG CAPSULE (FP) PO SCH ×3 (01:12→14:09)
[2016-09-16] MEDS ORDERED: PT OWN MED DRAWER 7, Y5N ONE (07:02)
[2016-09-16] MEDS: INSULIN SLIDING SCALE (NOVOLOG) 1 VIAL SQ SCH ×2 (07:08→14:06)
[2016-09-16] MEDS ORDERED: INSULIN (NOVOLOG) ASPART 100 UNITS/ML 10ML VIAL ONE (07:10)
[2016-09-16] MEDS: HEPARIN NA (PORCINE) 5,000 UNITS/ML 1ML VIAL SQ SCH (10:37)
--- NOTE | 2016-09-16 11:30 | PN ---
Progress Note (short form) - Note Progress Note: Pt seen and examined. He states his right knee feels much better. Pain is much less. No pain with knee ROM. Area of cellulitis is much smaller, and now non tender. Overall he is much improved on IV abx. Pt ready for DC from an orthopedic pov. Will f/u as an out pt PRN.
--- NOTE | 2016-09-16 12:33 | PN ---
Progress Note (short form) - Note Progress Note: Feels better Blood sugar fluctuating No hypos Vital Signs Period Temp Pulse Resp BP Sys/Gilmore Pulse Ox Last 24 Hr 98.2 F-98.4 F 68-83 20-20 106-134/56-91 PE: AOx3 Neck: Supple, No JVD HEENT: PERRL, EOMI Lungs: CTA CvS: S1S2 Abd: Benign Ext: Edema present, Decreased erythema over right knee Neuro: No focal deficit CMP Sodium 137 mmol/L (136-145) 09/14/16 07:00 Potassium 4.4 mmol/L (3.5-5.1) 09/14/16 07:00 Chloride 101 mmol/L (98-107) 09/14/16 07:00 Carbon Dioxide 28 mmol/L (21-32) 09/14/16 07:00 Anion Gap 8 (8-16) 09/14/16 07:00 BUN 10 mg/dL (7-18) D 09/14/16 07:00 Creatinine 0.7 mg/dL (0.7-1.3) 09/14/16 07:00 Creat Clearance w eGFR > 60 (>60) 09/14/16 07:00 POC Glucometer 204 UNITS (()) 09/16/16 10:55 Random Glucose 186 mg/dL (74-106) H D 09/14/16 07:00 Hemoglobin A1c % 9.8 % (4.8-6.0) H D 09/11/16 06:50 Calcium 9.1 mg/dL (8.5-10.1) 09/14/16 07:00 Total Bilirubin 0.4 mg/dL (0.2-1.0) D 09/14/16 07:00 AST 16 U/L (15-37) D 09/14/16 07:00 ALT 34 U/L (12-78) 09/14/16 07:00 Alkaline Phosphatase 70 U/L (45-117) 09/14/16 07:00 Total Protein 7.7 g/dl (6.4-8.2) 09/14/16 07:00 Albumin 3.1 g/dl (3.4-5.0) L 09/14/16 07:00 Current Medications Generic Name Dose Route Start Last Admin Trade Name Freq PRN Reason Stop Dose Admin Acetaminophen 650 mg 09/09/16 20:36 09/15/16 19:28 Tylenol - PO 650 mg Q6H PRN Administration FEVER OR PAIN Clindamycin HCl 300 mg 09/15/16 18:00 09/16/16 07:05 Cleocin - PO 300 mg Q6HPO NANCY Administration Heparin Sodium (Porcine) 5,000 unit 09/09/16 22:00 09/16/16 10:37 Heparin - SQ 5,000 unit BID NANCY Administration Insulin Aspart 1 vial 09/13/16 22:00 09/15/16 22:59 Novolog Vial Sliding Scale - SQ Not Given HS NANCY Protocol Insulin Aspart 1 vial 09/15/16 17:15 09/16/16 07:08 Novolog Vial Sliding Scale - SQ 6 units TIDAC NANCY Administration Protocol Insulin Detemir 15 units 09/15/16 22:00 09/15/16 23:00 Levemir Vial SQ 15 units HS NANCY Administration Metformin HCl 500 mg 09/11/16 17:09 09/16/16 07:58 Glucophage Xr - PO 500 mg BIDAC NANCY Administration Morphine Sulfate 2 mg 09/15/16 19:45 Morphine Injection - IVPUSH Q4H PRN PAIN AP: Cellulitis Rt Knee: improving, Ortho note noted New Onset DM: Increase Levemir 18 units daily at HS Continue Novolog SS coverage Diet exercise discussed again. Diabetes education done Metformin 500mg BID Teach pt to self inject insulin Morbid Obesity: Discussed option of Wt loss surgery. Pt wants to think about it. Problem List - Problems (1) Cellulitis of knee, right Code(s): L03.115 - CELLULITIS OF RIGHT LOWER LIMB
--- NOTE | 2016-09-16 13:48 | DS ---
Physical Examination Vital Signs: Vital Signs Temperature 98.2 F 09/16/16 06:48 Pulse Rate 68 09/16/16 06:48 Respiratory Rate 20 09/16/16 06:48 Blood Pressure 106/56 09/16/16 06:48 O2 Sat by Pulse Oximetry (%) 95 09/15/16 11:00 Constitutional: Yes: No Distress HENT: Yes: Atraumatic Neck: Yes: Supple Cardiovascular: Yes: Regular Rate and Rhythm Respiratory: Yes: CTA Bilaterally Gastrointestinal: Yes: Normal Bowel Sounds Extremities: Yes: WNL Neurological: Yes: Alert, Oriented Labs: CBC, BMP 09/14/16 07:00 09/14/16 07:00 Discharge Summary Reason For Visit: CELLULITIS OF RIGHT KNEE Current Active Problems Cellulitis of knee, right (Acute) Morbid obesity (Acute) Condition: Fair - Instructions Referrals: STAFF,NOT ON [Primary Care Provider] - - Home Medications Comprehensive Discharge Medication List: Ambulatory Orders Clindamycin [Cleocin -] 300 mg PO Q6HPO #42 capsule 09/16/16 Insulin (Levemir) [Levemir Vial] 18 units SQ HS #7 ml 09/16/16 Metformin Xr [Glucophage Xr -] 500 mg PO BIDAC #60 tab.sr.24h 09/16/16 dc home fu pmd and id 1 week
[2016-09-16 13:58] VITALS: BP 130/94; PULSE 89; TEMP 98.6
[2016-09-16] MEDS ORDERED: INSULIN DETEMIR 100 UNITS/ML MDV SQ SCH (22:00)
== END 2016-09-16 15:31 | disposition home or self-care (01) | DRG 603 ==
LOC: JER 10:53 → JERFT 10:53 → JERBED 16:52 → J5S 21:22
PROVIDERS: ADMIT Internal Medicine; ATTEND Internal Medicine
DX: L03.115 Cellulitis of right lower limb (principal); Z68.45 Body mass index [BMI] 70 or greater, adult; E66.01 Morbid (severe) obesity due to excess calories; M70.51 Other bursitis of knee, right knee; Z71.3 Dietary counseling and surveillance; E11.9 Type 2 diabetes mellitus without complications
CPT/HCPCS: 36415; 71010-TC; 73560-TC-RT; 80053; 81003; 83036; 85025; 87040; 87070; 87077; 87205; 90670; 93005; 93010; 99283-25; G0008; J1644; Q2037

== ENCOUNTER 2018-10-12 17:57 | Emergency (ER) | payer MEDICARE, OTHER ==
[2018-10-12 18:33] VITALS: BP 152/97; PULSE 107; TEMP 98.2; BMI 71.1
[2018-10-12] MEDS ORDERED: IBUPROFEN 600 MG TABLET (FP) PO ONE ×2 (18:33→19:53)
--- NOTE | 2018-10-12 18:33 | PDOC ---
Rapid Medical Evaluation Chief Complaint: Ear Problem Time Seen by Provider: 10/12/18 18:31 Medical Evaluation: Allergies Allergy/AdvReac Type Severity Reaction Status Date / Time No Known Allergies Allergy Verified 10/12/18 18:30 10/12/18 18:32 I have performed a brief in-person evaluation of this patient. The patient presents with a chief complaint of: left ear pain x 2 days. States used a hair pin to clean ear and since then with pain and slight decrease hearing. Denies fever, chills or drainage from ear Pertinent physical exam findings: NAD HEENT: +tenderness to left tragus, no mastoid tenderness I have ordered the following: analgesia The patient will proceed to the ED for further evaluation. Discharge Disposition - Diagnosis Ear pain - Referrals - Patient Instructions - Post Discharge Activity
--- NOTE | 2018-10-12 19:55 | PDOC ---
History of Present Illness - General Chief Complaint: Ear Problem Stated Complaint: EAR INFECTION Time Seen by Provider: 10/12/18 18:31 - History of Present Illness Initial Comments: 10/12/18 19:52 48-year-old insulin-dependent diabetic presents for evaluation of left ear pain and drainage 2 days no systemic symptoms Past History - Past Medical History Allergies/Adverse Reactions: Allergies Allergy/AdvReac Type Severity Reaction Status Date / Time No Known Allergies Allergy Verified 10/12/18 18:30 Home Medications: Ambulatory Orders Insulin (Levemir) [Levemir Vial] 18 units SQ HS #7 ml 09/16/16 metFORMIN XR [Glucophage Xr -] 500 mg PO BIDAC #60 tab.sr.24h 09/16/16 Ciprofloxacin HCl/Dexameth [Ciprodex Otic Suspension] 4 drop BID 5 Days #1 bottle 10/12/18 COPD: No Diabetes: Yes (IDDM) - Immunization History Immunization Up to Date: Yes - Suicide/Smoking/Psychosocial Hx Smoking History: Never smoked Have you smoked in the past 12 months: No Hx Alcohol Use: No Drug/Substance Use Hx: No Substance Use Type: None Review of Systems - Review of Systems Constitutional: No: Fever HEENTM: Yes: Ear Pain, Ear Discharge *Physical Exam - Vital Signs Last Vital Signs Temp Pulse Resp BP Pulse Ox 98.2 F 107 H 18 152/97 97 10/12/18 18:31 10/12/18 18:31 10/12/18 18:31 10/12/18 18:31 10/12/18 18:31 - Physical Exam Comments: 10/12/18 19:53 HEAD: NC/AT EYES: Conjuntiva clear Ears: Right ear canal and tympanic membrane are normal. Left ear canal is erythemic with purulent material in the canal and tympanic membrane visualized portion is not erythemic or retracted. NOSE: No d/c THROAT: Moist mucous membrances, oral pharanx clear, uvula midline NECK: Supple without adenopathy CARDIAC: S1 S2 LUNGS: CTA Full and Equal breath sounds ABDOMEN: Soft NT ND MS: Full ROM in all joints without edema NEUROLOGIC: No gross sensory or motor deficits, NVID SKIN: Normal color and temperature no lesions or rashes Moderate Sedation - Procedure Monitoring Vital Signs: Procedure Monitoring Vital Signs Temperature 98.2 F 10/12/18 18:31 Pulse Rate 107 H 10/12/18 18:31 Respiratory Rate 18 10/12/18 18:31 Blood Pressure 152/97 10/12/18 18:31 O2 Sat by Pulse Oximetry (%) 97 10/12/18 18:31 Medical Decision Making - Medical Decision Making 10/12/18 19:53 We'll treat otitis externa in this insulin-dependent 48-year-old morbidly obese male with Ciprodex otic solution and have him follow-up with ear nose and throat doctor in 1-2 days *DC/Admit/Observation/Transfer Diagnosis at time of Disposition: Ear pain, Otitis externa - Discharge Dispostion Disposition: HOME Condition at time of disposition: Stable Decision to Admit order: No - Prescriptions Prescriptions: Ciprofloxacin HCl/Dexameth [Ciprodex Otic Suspension] 4 drop BID 5 Days #1 bottle - Referrals Referrals: ON STAFF,NOT [Primary Care Provider] - Lewis Jackson MD [Staff Physician] - - Patient Instructions Printed Discharge Instructions: DI for Otitis Externa Additional Instructions: Please use the antibiotic drops as directed for the next 5 days. They do can contain a steroid which will raise her blood glucose please adjust her insulin accordingly. Return to the emergency room for worsening symptoms and follow-up with ear nose and throat doctor in 1-2 days for further evaluation and treatment options - Post Discharge Activity
== END 2018-10-12 20:01 | disposition home or self-care (01) ==
LOC: JERFT 17:57
DX: H60.502 Unspecified acute noninfective otitis externa, left ear (principal); E10.9 Type 1 diabetes mellitus without complications; Z79.4 Long term (current) use of insulin
CPT/HCPCS: 99281-25